=== PATIENT | male | born 1935 | race Caucasian/White ===

== ENCOUNTER 2017-08-05 08:36 | Day surgery (SDC) | payer MEDICARE, BC, OTHER ==
[~2017-08-05] VITALS: Ht 182.9 cm; Wt 90.9 kg
[~2017-08-05 08:36] MED LIST: ALTA2.5C4 PO; ASPI81TA82 PO; ATOR40TA49 PO; AVOD0.5C PO; DABI150 PO; DOXY100T18 PO; FISH1000 PO; HYDR-2768 PO; METO25TA3 PO; NIAS10004 PO; PERC5TAB12 PO; TRIA.1%T TOP; [UNRECOGNIZED DRUG - CODE] PO
[2017-08-05 08:53] VITALS: BP 134/69; PULSE 61; RESP 20; TEMP 97.9; O2SAT 92
[2017-08-05] MEDS ORDERED: AVOD0.5C PO (09:07)
[2017-08-05] MEDS ORDERED: ASPI81CH6 CHEW (09:07)
[2017-08-05] MEDS ORDERED: DICL500 PO (09:07)
[2017-08-05] MEDS ORDERED: PRAD150C PO (09:08)
[2017-08-05] MEDS ORDERED: MIRA25TA PO (09:08)
[2017-08-05] MEDS ORDERED: TOPR25TA PO (09:08)
[2017-08-05] MEDS ORDERED: [UNRECOGNIZED DRUG - OTHER] (09:08)
[2017-08-05] MEDS ORDERED: HYDR12.57 PO (09:08)
[2017-08-05] MEDS ORDERED: CIPR250T52 PO (09:08)
[2017-08-05] MEDS ORDERED: SODIUM CHLORIDE 0.9% 1000 ML IV SCH (09:15)
[2017-08-05] MEDS ORDERED: LEVOFLOXACIN 500 MG PREMIX 100 ML - nephrostomy tube insertion or exchange IV SCH (09:15)
[2017-08-05] MEDS ORDERED: MIDAZOLAM HCL 2 MG/2 ML VIAL ONE (10:34)
[2017-08-05] MEDS ORDERED: IOHEXOL 350 MG/ML 50 ML BTL (for RAD DIAG) OTHER ONE (11:00)
[2017-08-05 11:30] VITALS: BP 120/59; PULSE 60; RESP 16; TEMP 97.5; O2SAT 94
[2017-08-05 11:45] VITALS: BP 137/69; PULSE 68; RESP 18; O2SAT 97
--- NOTE | 2017-08-05 12:05 | PD.RAD ---
Post Procedure Progress Note Pre Procedure Diagnosis: (1) BPH (benign prostatic hyperplasia) Post Procedure Diagnosis: (1) BPH (benign prostatic hyperplasia) Procedure Date: Aug 05, 2017 Supervising Radiologist: Zachariah Valentino Proceduralist/Assist: Sandy Osborne, RT(R)(), Arash Neal RT(R) Anesthesia: Conscious Sedation Plan of Activity Patient to Unit: ROPU Patient Condition: Good See PACS Report for procedural detail/treatment Drainage Procedure Procedure 1 Imaging Guidance: Fluoroscopy Side: Left Procedure Type: Ureteral Stent Procedure: Placement Bulgarian: 8 (24 cm) Fluid Description: Clear Zachariah Valentino MD Aug 05, 2017 12:05
[2017-08-05 12:15] VITALS: BP 133/72; PULSE 69; RESP 18; O2SAT 94
[2017-08-05 12:45] VITALS: BP 136/81; PULSE 68; RESP 18; O2SAT 96
--- NOTE | 2017-08-05 13:51 | RADRPT ---
EXAM DATE/TIME: 08/05/2017 12:02 [place] COMPARISON: No previous studies available for comparison. INDICATIONS : Patient with a history of hydronephrosis, ureteral obstruction. MEDICAL HISTORY : HTN Renal disease CAD AFIB SURGICAL HISTORY : CABG ENCOUNTER: Initial ACUITY: 2 months PAIN SCORE: 0/10 FLUORO TIME: 3.8 minutes IMAGE SERIES: 4 SEDATION TIME: 20 minutes CONTRAST: 20 cc Omnipaque (iohexol) 350 MEDICATION(S): 1.) 1.5 mg midazolam (Versed) IV 2.) 75 mcg fentanyl (Sublimaze) IV DEVICE(S): 1.) 8 [place] X24CM Polaris catheter PROCEDURE : 1. Percutaneous antegrade pyelogram 2. Conversion of nephrostomy tube to nephroureteral stent 3. Conscious sedation with continuous EKG and oximetry monitoring The risks, benefits and alternatives to the procedure were explained and verbal and written consent w as obtained. The site was prepped in sterile fashion. Full sterile technique was used, including ca p, mask, sterile gloves and gown and a large sterile sheet. Hand hygiene and 2% chlorhexidine and/or betadine/alcohol prep was utilized per protocol for cutaneous antisepsis. The skin and subcutaneous tissues were infiltrated with local anesthetic solution. Percutaneous antegrade pyelogram was performed to delineate the urinary tract. A guidewire was placed through theprevious placed nephrostomy into the bladder and over this the prescribed stent was place d. Conscious sedation was performed with the prescribed dosages and duration as above in the presence of an independent trained radiology nurse to assist in the monitoring of the patient. EKG and oximetry remained stable throughout the procedure. The patient tolerated the procedure well and there were no complications. CONCLUSION: Uncomplicated stent placement as above. Zachariah Valentino MD on August 05, 2017 at 13:49 Board Certified Radiologist. This report was verified electronically.
== END 2017-08-05 13:17 | disposition home or self-care (01) ==
LOC: HROP 08:36 → HRIP 08:40 → HROP 13:17
PROVIDERS: ATTEND Urology
DX: N13.1 Hydronephrosis with ureteral stricture, not elsewhere classified (principal); N40.1 Benign prostatic hyperplasia with lower urinary tract symptoms; R33.8 Other retention of urine; I10 Essential (primary) hypertension; I25.10 Atherosclerotic heart disease of native coronary artery without angina pectoris; I48.91 Unspecified atrial fibrillation
CPT/HCPCS: 50693; 99152; 99153; C1769; C1887; C2617; J1956; J2250; J3010; J7030; Q9967